=== PATIENT | female | born 1995 | race Hispanic/Latino ===

== ENCOUNTER 2019-09-02 13:20 | Observation (INO) | payer OTHER ==
[~2019-09-02] VITALS: Ht 154.9 cm; Wt 103.9 kg
[2019-09-02 14:28] LABS: APPEARANCE,URINE SL CLOUDY (CLEAR); BILIRUBIN,URINE SMALL (NEGATIVE); COLOR,URINE YELLOW (YELLOW); GLUCOSE, URINE (UA) NEGATIVE (NEGATIVE); KETONES,URINE 5 mg/dL (NEGATIVE); LEUKOCYTE ESTERASE ,URINE LARGE (NEGATIVE); NITRATE,URINE NEGATIVE (NEGATIVE); OCCULT BLOOD,URINE NEGATIVE (NEGATIVE); PH,URINE 7.5 (5.0-8.0); PROTEIN,URINE 30 mg/dL (NEGATIVE)
[2019-09-02 14:38] LABS: BACTERIA,URINE Many /HPF (None Seen); RBC,URINE None Seen /HPF (0-1)
[2019-09-02 15:00] VITALS: BP 100/63
== END 2019-09-02 17:24 | disposition home or self-care (01) ==
LOC: EDH 13:20 → LDH 13:35
PROVIDERS: ADMIT Obstetrics & Gynecology; ATTEND Obstetrics & Gynecology
DX: O36.8130 Decreased fetal movements, third trimester, not applicable or unspecified (principal); Z3A.37 37 weeks gestation of pregnancy
CPT/HCPCS: 59025; 76805; 81001; 99284; G0378 ×4

== ENCOUNTER 2019-09-18 20:14 | Inpatient (IN) | payer OTHER ==
[~2019-09-18] VITALS: Ht 157.5 cm; Wt 104.8 kg
[2019-09-18 20:40] VITALS: BP 122/70
[2019-09-18] MEDS ORDERED: LACTATED RINGERS 1000ML IV PRN (20:45)
[2019-09-18 20:56] LABS: APPEARANCE,URINE Clear (CLEAR); BILIRUBIN,URINE Negative (NEGATIVE); COLOR,URINE Dark Yellow (YELLOW); GLUCOSE, URINE (UA) Negative (NEGATIVE); KETONES,URINE Negative (NEGATIVE); LEUKOCYTE ESTERASE ,URINE Small (NEGATIVE); NITRATE,URINE Negative (NEGATIVE); OCCULT BLOOD,URINE Negative (NEGATIVE); PH,URINE 6.5 (5.0-8.0); PROTEIN,URINE Negative (NEGATIVE)
[2019-09-18 21:04] LABS: AMPHET/METH SCREEN,URINE NEGATIVE (NEGATIVE); BARBITURATE SCREEN, URINE NEGATIVE (NEGATIVE); BENZODIAZEPINES SCREEN,URINE NEGATIVE (NEGATIVE); CANNABINOID SCREEN,URINE NEGATIVE (NEGATIVE); COCAINE SCREEN,URINE NEGATIVE (NEGATIVE); OPIATE SCREEN,URINE NEGATIVE (NEGATIVE); PHENCYCLIDINE SCREEN,URINE NEGATIVE (NEGATIVE)
[2019-09-18 21:37] LABS: BACTERIA,URINE Moderate /HPF (None Seen); MUCUS,URINE Few LPF (None Seen); SQUAMOUS EPITHELIAL CELL,UR Many /HPF (0-2)
[2019-09-18] MEDS ORDERED: LACTATED RINGERS 1000ML 1,000 ML IV PRN (22:22)
[2019-09-18] MEDS ORDERED: PHEN97.511 PO (22:26)
[2019-09-18] MEDS ORDERED: PROMETHAZINE HCL 25 MG/ML 1ML AMPULE IM PRN (22:30)
[2019-09-18] MEDS ORDERED: MEPERIDINE-PF 50 MG/ML SYG IVP PRN (22:30)
[2019-09-18] MEDS ORDERED: AMPICILLIN 2GM+NS 100ML 100 ML IV ONE ×2 (22:30→22:32)
[2019-09-18 23:24] LABS: HEMATOCRIT 35.6 % (36-48); MEAN CORPUSCULAR HEMOGLOBIN 30.4 pg (27.0-33.0); MEAN CORPUSCULAR HGB CONC 33.4 g/dL (32.0-36.0); MEAN CORPUSCULAR VOLUME 90.8 fL (79-99); PLATELET COUNT (AUTO) 203 K/uL (130-400); RED BLOOD CELL COUNT(AUTO) 3.92 MIL/uL (4.00-5.50); RED CELL DISTRIBUTION WIDTH 13.9 % (11.0-15.5)
[2019-09-19] MEDS: AMPICILLIN 1GM+NS 50ML 50 ML IV SCH ×3 (02:31→22:30)
[2019-09-19] MEDS ORDERED: LACTATED RINGERS 1000ML 1,000 ML IV SCH (08:30)
[2019-09-19] MEDS ORDERED: CEFAZOLIN SODIUM 1 GM VIAL IVP PRN ×2 (08:30→09:30)
[2019-09-19 10:44] LABS: RAPID PLASMA REAGIN NONREACTIVE (NONREACTIVE)
[2019-09-19] MEDS ORDERED: DURAMORPH PF1 MG/ML 10ML AMP IV ONE (11:06)
[2019-09-19] MEDS ORDERED: EPINEPHRINE 1 MG/ML AMPULE ONE (11:10)
[2019-09-19] MEDS ORDERED: ONDANSETRON HCL 4 MG/2 ML VIAL ONE (11:15)
[2019-09-19] MEDS ORDERED: OXYTOCIN 10 USP UNITS/ML ONE ×3 (11:47→12:20)
[2019-09-19] MEDS ORDERED: CEFAZOLIN SODIUM 1 GM VIAL IVP ONE (11:55)
[2019-09-19] MEDS ORDERED: EPHEDRINE SULFATE 50 MG/ML AMPULE ONE (12:01)
[2019-09-19] MEDS ORDERED: GLYCOPYRROLATE 1 MG/5 ML SYRINGE ONE (12:06)
[2019-09-19] MEDS ORDERED: MIDAZOLAM HCL 1 MG/ML 2ML VIAL ONE (12:22)
[2019-09-19] MEDS ORDERED: PROMETHAZINE HCL 25 MG/ML 1ML AMPULE IM PRN (12:45)
[2019-09-19] MEDS ORDERED: SODIUM CHLORIDE 0.9% 10 ML VIAL IVP PRN (12:45)
[2019-09-19] MEDS ORDERED: MEPERIDINE-PF 75 MG/ML SYG IM PRN (12:45)
[2019-09-19] MEDS ORDERED: OXYTOCIN-LR 20 UNITS/1000 ML 1,000 ML IV PRN (12:45)
[2019-09-19 14:08] VITALS: BP 108/65
--- NOTE | 2019-09-19 14:08 | NUR ---
PATIENT ARRIVED TO ROOM VIA BED FROM LABOR AND DELIVERY. PATIENT C/O NAUSEA. PHENERGAN GIVEN PRIOR TO TRANSFER (GIVEN AND REPORTED BY MALLORY VALDES) DRESSING IS DRY AND INTACT. FUNDUS FIRM, BLEEDING SCANT. TEDS AND SCDS TO LOWER BILATERAL EXTREMITIES. INSTRUCTED PATIENT ON I.S USE. RETURN DEMONSTRATION UTILIZED. CALL LIGHT LEFT IN REACH. ADVISED PATIENT TO CALL WITH ANY NEEDS OR CONCERNS.
[2019-09-19] MEDS ORDERED: DiphenhydrAMINE HCL 50 MG/ML VIAL IVP PRN (17:00)
[2019-09-19] MEDS ORDERED: NALOXONE HCL 0.4 MG/1 ML ML IVP PRN ×2 (17:00)
[2019-09-19] MEDS ORDERED: EPHEDRINE SULFATE 50 MG/ML AMPULE IVP PRN (17:00)
[2019-09-19] MEDS ORDERED: ONDANSETRON HCL 4 MG/2 ML VIAL IVP PRN (17:00)
[2019-09-19 17:19] VITALS: BP 112/69
--- NOTE | 2019-09-19 17:20 | NUR ---
PERICARE GIVEN TO PATIENT AT THIS TIME, ASSISTED BY AISSATOU WARE. NO PAIN REPORTED AT THIS TIME. CALL LIGHT IN REACH. ADVISED PATIENT TO CALL WITH ANY NEEDS OR CONCERNS.
[2019-09-19] MEDS: DEXTROSE 5 %-0.45 % NACL 1,000 ML IV PRN (18:50)
[2019-09-19 19:34] VITALS: BP 106/48
[2019-09-19 23:24] VITALS: BP 96/53
[2019-09-19] MEDS ORDERED: MEPERIDINE-PF 25 MG/ML SYG ONE (23:29)
[2019-09-19] MEDS ORDERED: MEPERIDINE-PF 50 MG/ML SYG ONE (23:43)
--- NOTE | 2019-09-20 00:18 | NUR ---
Patient; Patient given pain medication Demerol 25 mg and 50 mg a total of 75 and Phenergan 25 mg. IM injected to her right gluteal muscles. Note: I was able to scan the Demerol 25 mg and charted it but the Demerol 50 mg over ride in ER unable to chart it . Tried to scan but it says discontinued. able to acknowledge and it was given. Addendum: 09/20/19 at 0023 by RUSH CAPONE RN RN Amended: Links added.
--- NOTE | 2019-09-20 00:23 | NUR ---
Genoveva care done; Fundus Firm with small Lochia Rubra. Patient advice to move every 2 hours to prevent pneumonia and use her incentive spirometer. Plan of care discussed with her and who speaks Fijian they both verbalizes understanding.
[2019-09-20] MEDS: DEXTROSE 5 %-0.45 % NACL 1,000 ML IV PRN ×2 (01:32→08:07)
--- NOTE | 2019-09-20 04:00 | NUR ---
Nursing Care: Genoveva care done fundus firm with small Lochia Rubra. Abdominal Binder applied encouraged to get up and dangle legs. Patient verbalizes understanding.
[2019-09-20 04:05] VITALS: BP 92/59
[2019-09-20] MEDS ORDERED: SODIUM CHLORIDE 0.9% 10 ML VIAL IVP PRN (04:30)
[2019-09-20] MEDS ORDERED: BISACODYL 10 MG SUPP.RECT RC PRN (04:30)
[2019-09-20] MEDS ORDERED: LANOLIN 30GM OINTMENT TP PRN (04:30)
[2019-09-20] MEDS ORDERED: ACETAMINOPHEN EXTRA STRENGTH 500 MG TABLET PO PRN (04:30)
[2019-09-20] MEDS: ACETAMINOPHEN-CODEINE 300/30MG TAB PO PRN ×3 (05:56→21:52)
[2019-09-20] MEDS: MEASLES/MUMPS/RUBELLA VACCINE, LIVE 0.5 ML/VIAL SQ SCH (05:58)
[2019-09-20 06:32] LABS: HEMATOCRIT 31.8 % (36-48); MEAN CORPUSCULAR HEMOGLOBIN 30.4 pg (27.0-33.0); MEAN CORPUSCULAR HGB CONC 33.3 g/dL (32.0-36.0); MEAN CORPUSCULAR VOLUME 91.1 fL (79-99); PLATELET COUNT (AUTO) 142 K/uL (130-400); RED BLOOD CELL COUNT(AUTO) 3.49 MIL/uL (4.00-5.50); RED CELL DISTRIBUTION WIDTH 14.1 % (11.0-15.5); WHITE BLOOD COUNT (AUTO) 10.9 K/uL (4.8-10.8)
--- NOTE | 2019-09-20 06:40 | NUR ---
Vogel; Vogel Catheter taken out patient tolerated it well. Patient advice ambulate call for help the first time she gets up. Patient verbalizes understanding.
[2019-09-20 07:14] LABS: HEPATITIS Bs ANTIGEN SCREEN P Negative (Negative)
--- NOTE | 2019-09-20 07:30 | NUR ---
incisional dressing removed,incision is dry and intact,applied telfa dressing, applied abdominal binder, assisted out of bed and up to chair, pt tolerated well. Addendum: 09/20/19 at 0806 by RIKKI ASHLEY RN Amended: Links added.
[2019-09-20 07:41] VITALS: BP 112/58
[2019-09-20] MEDS: DOCUSATE SODIUM 100 MG CAP PO SCH ×2 (08:49→21:51)
[2019-09-20] MEDS: SIMETHICONE 80 MG TAB.CHEW PO PRN ×3 (08:49→21:51)
[2019-09-20 11:33] VITALS: BP 105/56
[2019-09-20] MEDS: IBUPROFEN 600 MG TABLET PO PRN (13:31)
[2019-09-20 16:39] VITALS: BP 104/52
--- NOTE | 2019-09-20 18:10 | NUR ---
pt ambulating in the hallway, in steady gait Addendum: 09/20/19 at 1818 by RIKKI ASHLEY RN Amended: Links added.
[2019-09-20 19:28] VITALS: BP 94/54
--- NOTE | 2019-09-20 22:10 | NUR ---
ACTIVITY: Patient ambulating inside the room after she took a shower. She refused to have Dulcolax suppository offered. Warm prune juice given.
[2019-09-20 23:28] VITALS: BP 93/62
--- NOTE | 2019-09-21 00:05 | NUR ---
Activity: Patient sitting in bed claimed she felt soreness/cramping pain in her abdomen. Motrin 600 mg p.o. given.
[2019-09-21] MEDS: IBUPROFEN 600 MG TABLET PO PRN ×2 (00:11→17:03)
[2019-09-21 03:42] VITALS: BP 105/66
[2019-09-21] MEDS: MEASLES/MUMPS/RUBELLA VACCINE, LIVE 0.5 ML/VIAL SQ SCH (04:30)
[2019-09-21 07:37] VITALS: BP 93/56
[2019-09-21] MEDS: ACETAMINOPHEN-CODEINE 300/30MG TAB PO PRN (07:55)
[2019-09-21] MEDS: SIMETHICONE 80 MG TAB.CHEW PO PRN ×2 (09:10→17:02)
[2019-09-21] MEDS: DOCUSATE SODIUM 100 MG CAP PO SCH (09:10)
--- NOTE | 2019-09-21 09:39 | NUR ---
NO CARE Sw met with pt who is to [place]t [place] and this is first child for couple. [facility] in [place] and works at [employer] in [place]. Pt reports that she did have care all nine of in [facility]. Pt has provided staff with copies of care records. Pt states they have basic items for baby including a car seat. Plan is home to stay home for 1 week to assist pt with baby and recovery. Couple have no family in [place] that can assist at sc. Pt denies need for assistance or referrals at this time.
[2019-09-21 11:18] VITALS: BP 110/59
[2019-09-21 16:16] VITALS: BP 97/60
== END 2019-09-21 20:45 | disposition home or self-care (01) | DRG 788 ==
LOC: EDH 20:14 → OBSVTOIN 20:15 → LDH 20:15 → WSH 09-19 13:59
PROVIDERS: ADMIT Obstetrics & Gynecology; ATTEND Obstetrics & Gynecology
PROC: 3E0134Z Introduction of Serum, Toxoid and Vaccine into Subcutaneous Tissue, Percutaneous Approach (ICD-10-PCS; 2019-09-19)
PROC: 10D00Z1 Extraction of Products of Conception, Low, Open Approach (ICD-10-PCS; principal; 2019-09-19 11:50)
DX: O36.63X0 Maternal care for excessive fetal growth, third trimester, not applicable or unspecified (principal); Z37.0 Single live birth; Z23 Encounter for immunization; Z3A.40 40 weeks gestation of pregnancy
CPT/HCPCS: 36415; 59510; 76805; 80305; 81001; 82120; 85014; 85018; 85027; 86592; 86701; 86850; 86900; 86901; 87340; 87390; 90707; 96360; 96361; A4344; G0378; J0171; J0290; J0690; J2175; J2250; J2274; J2405; J2550; J2590; J3490; J7120